=== PATIENT | female | born 1995 | race African-American/Black ===

== ENCOUNTER 2017-09-20 18:04 | Emergency (ER) | payer SELFPAY ==
[~2017-09-20] VITALS: Ht 162.6 cm; Wt 41.0 kg
[2017-09-20 18:06] VITALS: BP 118/67; PULSE 96; RESP 12; TEMP 98.2; O2SAT 99
--- NOTE | 2017-09-20 21:29 | RADRPT ---
EXAM DATE/TIME: 09/20/2017 21:07 [place] COMPARISON: No previous studies available for comparison. INDICATIONS : Patient slammed tuft of 4th digit, left hand in window at [facility]. Laceration and ripping of nail o n 4th digit tuft. MEDICAL HISTORY : None. SURGICAL HISTORY : None. ENCOUNTER: Initial ACUITY: 1 day PAIN SCORE: 8/10 LOCATION: Left 4th digit tuft. FINDINGS: Three view examination of the left hand demonstrates no dislocation, or fracture. The carpal bones appear intact. The interphalangeal and metacarpophalangeal joints are intact. Bony mineralization i s normal. There is soft tissue injury to the tip of the fourth finger. CONCLUSION: No acute fracture joint dislocation. Soft tissue injury to the tip of the fourth finger. Thanh Aquino MD on September 20, 2017 at 21:26 Board Certified Radiologist. This report was verified electronically.
--- NOTE | 2017-09-20 21:43 | PD ---
HPI Chief Complaint: Injury Time Seen by Provider: 21:32 Travel History International Travel<30 days: No Contact w/Intl Traveler<30days: No Traveled to known affect area: No History of Present Illness HPI 22-year-old female here for evaluation of left fourth fingernail/finger injury. The patient works at [employer] and states that her finger got caught in the drive-through window. This occurred at around 5:30 PM. X-ray of the left hand was ordered in triage, and the patient waited in triage for 3.5 hours before being brought back to an exam room. By the time I assessed her the bleeding had stopped, and the pain has improved. She states that the pain is 3 out of 10 , constant, worse with movement and palpation. She denies any other injuries. She was mainly concerned because she was unable to control the bleeding. She does have artificial nails on top of her real nails. PFSH Past Medical History ?: Not Social History Tobacco Use: No Allergies-Medications (Allergen,Severity, Reaction): Coded Allergies: No Known Allergies (Verified Allergy, Unknown, 09/20/17) Reported Meds & Prescriptions Reported Meds & Active Scripts Active No Active Prescriptions or Reported Medications Review of Systems Except as stated in HPI: all other systems reviewed are Neg Physical Exam Narrative GENERAL: Well-developed, well-nourished, comfortable, no apparent distress. CARDIOVASCULAR: Regular rate and rhythm. Bilateral distal radial pulses are brisk and equal. Normal capillary refill in all fingers in bilateral hands. RESPIRATORY: No accessory muscle use. MUSCULOSKELETAL: Left fourth finger with cracked artificial nail with distal nailbed exposed without active bleeding, no obvious laceration. There is normal range of flexion and extension in all fingers and left hand. There is mild tenderness over the left fourth distal finger without obvious swelling. NEUROLOGICAL: Awake and alert. No obvious cranial nerve deficits. Motor grossly within normal limits. Normal speech. Normal sensation in left fourth finger. PSYCHIATRIC: Appropriate mood and affect; insight and judgment normal. Data Data Last Documented VS Vital Signs Date Time Temp Pulse Resp B/P (MAP) Pulse Ox O2 Delivery O2 Flow Rate FiO2 09/20/17 21:48 09/20/17 18:06 98.2 96 12 99 Orders Orders Hand, Complete ([id number]) (09/20/17 ) Ed Discharge Order (09/20/17 21:46) MDM Medical Decision Making Medical Screen Exam Complete: Yes Emergency Medical Condition: Yes Differential Diagnosis Left fourth finger lesion, fingernail avulsion, nailbed laceration, subungual hematoma unlikely, fracture Narrative Course Left fourth finger x-ray: No acute fracture or joint dislocation. Soft tissue injury to the tip of the fourth finger. Patient does not have any clinical exam findings to suggest subungual hematoma. She has a partial avulsion of an artificial fingernail of her left fourth finger with part of the nailbed exposed. There is no active bleeding. No obvious lacerations. Plan at this time is to apply bacitracin and have the patient keep this finger clean. I advised that she allowed the finger nail to grow out before replacing the artificial fingernail. She is stable for discharge home. Diagnosis Primary Impression: Injury of left ring finger Qualified Codes: S69.92XA - Unspecified injury of left wrist, hand and finger( s), initial encounter Referrals: Mikaela Fishman MD 3 days Hand surgeon Additional Instructions: Follow-up with hand surgeon Dr. Fishman or a hand surgeon of your choice this week. Return to the emergency department for worsening symptoms or any other concerns. Scripts No Active Prescriptions or Reported Meds Disposition: 01 DISCHARGE HOME Condition: Stable Eduardo Lunsford MD Sep 20, 2017 21:43
== END 2017-09-20 22:04 | disposition home or self-care (01) ==
LOC: NEPD 18:04
DX: S61.305A Unspecified open wound of left ring finger with damage to nail, initial encounter (principal); W23.0XXA Caught, crushed, jammed, or pinched between moving objects, initial encounter; Y92.511 Restaurant or cafe as the place of occurrence of the external cause; Y99.0 Civilian activity done for income or pay
CPT/HCPCS: 73130; 99283